=== PATIENT | female | born 1980 | race African-American/Black ===

== ENCOUNTER 2020-03-20 06:24 | Inpatient (IN) ==
[~2020-03-20 06:24] MED LIST: ceFAZolin 2,000 MG in PREMIX 1 EACH IV ONE
[2020-03-20] MEDS ORDERED: GABAPENTIN 400 MG CAPSULE PO ONE (07:07)
[2020-03-20] MEDS ORDERED: ACETAMINOPHEN 500 MG TABLET PO ONE (07:07)
[2020-03-20] MEDS ORDERED: FAMOTIDINE 20 MG TABLET PO ONE (07:07)
[2020-03-20] MEDS ORDERED: LACTATED RINGERS 1,000 ML IV SCH (07:30)
[2020-03-20] MEDS ORDERED: ISOSULFAN BLUE 5 ML VIAL SUBCUT ONE (10:24)
[2020-03-20] MEDS ORDERED: FAMOTIDINE 20 MG TABLET ONE (10:30)
[2020-03-20] MEDS ORDERED: ACETAMINOPHEN 500 MG TABLET ONE (10:30)
[2020-03-20] MEDS ORDERED: GABAPENTIN 400 MG CAPSULE ONE (10:30)
[2020-03-20] MEDS ORDERED: ALBUTEROL/IPRATROPIUM 3 ML NEB RESP TX PRN (13:37)
[2020-03-20] MEDS ORDERED: HYDROmorphone 2 MG/1 ML VIAL IV PRN ×3 (13:37→14:15)
[2020-03-20] MEDS ORDERED: ACETAMINOPHEN 325 MG TABLET PO PRN (13:37)
[2020-03-20] MEDS ORDERED: BISACODYL 5 MG TABLET PO PRN (13:37)
[2020-03-20] MEDS ORDERED: KETOROLAC 15 MG/1 ML VIAL IV PRN (13:37)
[2020-03-20] MEDS ORDERED: fentaNYL 100 MCG/2 ML VIAL ONE (14:11)
[2020-03-20] MEDS ORDERED: LIDOCAINE 2% 5 ML VIAL ONE (14:11)
[2020-03-20] MEDS ORDERED: propofoL 200 MG/20 ML VIAL IV ONE (14:11)
[2020-03-20] MEDS ORDERED: GLYCOPYRROLATE 0.4 MG/2 ML VIAL ONE (14:11)
[2020-03-20] MEDS ORDERED: SEVOFLURANE 1 UNIT/15 MINUTE INH ONE (14:11)
[2020-03-20] MEDS ORDERED: DEXAMETHASONE 4 MG/1 ML VIAL ONE (14:11)
[2020-03-20] MEDS ORDERED: KETOROLAC 30 MG/1 ML VIAL ONE (14:11)
[2020-03-20] MEDS ORDERED: SUCCINYLCHOLINE 200 MG/10 ML VIAL ONE (14:12)
[2020-03-20] MEDS ORDERED: ROCURONIUM 100 MG/10 ML VIAL IV ONE (14:12)
[2020-03-20] MEDS ORDERED: NEOSTIGMINE 10 MG/10 ML VIAL ONE (14:12)
[2020-03-20] MEDS ORDERED: ACETAMINOPHEN 1,000 MG/100 ML VIAL IV ONE (14:12)
[2020-03-20] MEDS ORDERED: ONDANSETRON 4 MG/2 ML VIAL IV PRN (14:15)
[2020-03-20] MEDS: LACTATED RINGERS 1,000 ML IV SCH (16:00)
[2020-03-20] MEDS: ONDANSETRON 4 MG/2 ML VIAL IV PRN ×2 (16:00→20:06)
[2020-03-20] MEDS ORDERED: PROMETHAZINE INJ 25 MG in SODIUM CHLORIDE 0.9% 50 ML IV PRN (16:37)
[2020-03-20] MEDS: ceFAZolin 2,000 MG in PREMIX 1 EACH IV SCH (20:09)
[2020-03-21] MEDS: ceFAZolin 2,000 MG in PREMIX 1 EACH IV SCH (04:02)
[2020-03-21 05:20] LABS: Basophils % 0.1 % (0.0-0.8); Hematocrit 25.4 VOL% (35.7-47.0); Immature Granulocytes % 0.5 %; Immature Granulocytes Absolute 0.05 #; Lymphocytes # 0.8 10*3/uL (1.4-4.0); Lymphocytes % 8.1 % (21.3-54.2); Mean Corpuscular HGB Conc 31.5 GM/DL (32-36); Mean Corpuscular Volume 85.5 FL (87-102); Mean Platelet Volume 10.2 FL (9.6-12.0); Monocytes % 7.4 % (1.7-12.7); Neutrophils % 83.9 % (38.7-73.9); Platelet Count 289 T/CUMM (130-400); Red Blood Count 2.97 MC/CUMM (3.8-5.5); Red Cell Distribution Width 17.2 % (9.3-17.3)
[2020-03-21] MEDS ORDERED: PANTOPRAZOLE 40 MG TABLET PO SCH (09:00)
[2020-03-21] MEDS: LACTATED RINGERS 1,000 ML IV SCH (12:20)
[2020-03-21] MEDS ORDERED: TAMOXIFEN 10 MG TABLET PO SCH (15:15)
[2020-03-21 15:47] VITALS: BP 103/44
== END 2020-03-21 16:20 | disposition home or self-care (01) | DRG 362 ==
LOC: N.SDSINP 06:24 → N.OR 06:24 → N.SDSINP 06:28 → N.OR 07:07 → N.SDSINP 07:07 → N.4E 14:56
PROVIDERS: ADMIT Student in an Organized Health Care Education/Training Program; ATTEND Student in an Organized Health Care Education/Training Program